=== PATIENT | female | born 1980 | race Caucasian/White ===

== ENCOUNTER 2018-05-23 12:52 | Emergency (ER) | payer OTHER ==
[2018-05-23 12:58] VITALS: BMI 27.6
--- NOTE | 2018-05-23 13:34 | PDOC ---
History of Present Illness - General Chief Complaint: Chest Pain Stated Complaint: CHEST PAIN,LT ARM NUMBNESS Time Seen by Provider: 05/23/18 13:30 History Source: Patient - History of Present Illness Initial Comments: 05/23/18 14:27 37 year old female c/o left sided chest pain radiating to left arm x 1 day. reports slight nausea, headache with chest pressure. as per patient with uri symptoms and cough. denies prolonged sitting, recent travel. No Pmhx Past History - Past Medical History Allergies/Adverse Reactions: Allergies Allergy/AdvReac Type Severity Reaction Status Date / Time No Known Allergies Allergy Verified 05/23/18 12:59 Home Medications: Ambulatory Orders NK [No Known Home Medication] 05/23/18 COPD: No - Family Disease History Family Disease History: Heart Disease: Father ( of [place]), Brother ( hypertension), Sister (hypertension) - Immunization History Immunization Up to Date: Yes - Suicide/Smoking/Psychosocial Hx Smoking History: Never smoked Hx Alcohol Use: No Substance Use Type: None Review of Systems - Review of Systems Able to Perform ROS?: Yes Is the patient limited Mongolian proficient: No *Physical Exam - Vital Signs Last Vital Signs Temp Pulse Resp BP Pulse Ox 97.9 F 78 18 125/81 99 05/23/18 12:56 05/23/18 12:56 05/23/18 12:56 05/23/18 12:56 05/23/18 12:56 - Physical Exam General Appearance: Yes: Appropriately Dressed Respiratory/Chest: positive: Chest Tender (+ left anterior chest pain), Lungs Clear, Normal Breath Sounds Cardiovascular: positive: Regular Rhythm, Regular Rate Musculoskeletal: positive: Normal Inspection Extremity: positive: Normal Capillary Refill, Normal Inspection, Normal Range of Motion Integumentary: positive: Normal Color, Dry, Warm Neurologic: positive: Fully Oriented, Alert, Normal Mood/Affect Moderate Sedation - Procedure Monitoring Vital Signs: Procedure Monitoring Vital Signs Temperature 97.9 F 05/23/18 12:56 Pulse Rate 78 05/23/18 12:56 Respiratory Rate 18 05/23/18 12:56 Blood Pressure 125/81 05/23/18 12:56 O2 Sat by Pulse Oximetry (%) 99 05/23/18 12:56 Medical Decision Making - Medical Decision Making 05/23/18 14:46 A: chest pain P: labs chest xray has family risk factors. r/o ACS.. 05/23/18 15:18 patient signed out to Tiffany PARRA. patient to be transferred for further management. *DC/Admit/Observation/Transfer Diagnosis at time of Disposition: Chest pain Qualifiers: Chest pain type: other chest pain Qualified Code(s): R07.89 - Other chest pain - Referrals Referrals: Collin Aparicio [Primary Care Provider] - - Patient Instructions - Post Discharge Activity
[2018-05-23] MEDS ORDERED: ASPIRIN 81 MG CHEWABLE TABLETS PO ONE (14:21)
[2018-05-23] MEDS ORDERED: ASPIRIN 81 MG CHEWABLE TABLETS ONE (14:40)
[2018-05-23 15:31] LABS: BASO % 0.8 % (0-2.0); EOS % 3.3 % (0-4.5); HEMATOCRIT 37.3 % (32.4-45.2); HEMOGLOBIN 13.4 GM/dL (10.7-15.3); LYMPH % 46.1 % (8-40); MCH 31.8 pg (25.7-33.7); MCHC 35.9 g/dl (32.0-36.0); MEAN CELL VOLUME 88.4 fl (80-96); MEAN PLT VOLUME 9.1 fl (7.5-11.1); MONO % 8.9 % (3.8-10.2); NEUT % 40.9 % (42.8-82.8); PLATELET COUNT 236 K/MM3 (134-434); RBC 4.22 M/mm3 (3.60-5.2); WHITE BLOOD COUNT 4.3 K/mm3 (4.0-10.0)
--- NOTE | 2018-05-23 15:39 | PDOC ---
*Physical Exam - Vital Signs Last Vital Signs Temp Pulse Resp BP Pulse Ox 97.9 F 78 18 125/81 99 05/23/18 12:56 05/23/18 12:56 05/23/18 12:56 05/23/18 12:56 05/23/18 12:56 Heart Score/ECG Review - History History: Slightly suspicious - Electrocardiogram EKG: Normal - Age Age: </= 45 - Risk Factors Based on the list above the patient has:: No risk factors known - Troponin Troponin: </= normal limit - Score Heart Score - Total: 0 ED Treatment Course - LABORATORY CBC & Chemistry Diagram: 05/23/18 15:18 05/23/18 15:18 - ADDITIONAL ORDERS Additional order review: 05/23/18 15:18 RBC 4.22 MCV 88.4 MCHC 35.9 RDW 13.0 MPV 9.1 Neutrophils % 40.9 L D Lymphocytes % 46.1 H D Monocytes % 8.9 Eosinophils % 3.3 D Basophils % 0.8 - Medications Given in the ED: ED Medications Discontinued Medications Generic Name Dose Route Start Last Admin Trade Name Freq PRN Reason Stop Dose Admin Aspirin 162 mg 05/23/18 14:21 05/23/18 14:45 Asa - PO 05/23/18 14:22 162 mg ONCE ONE Administration Medical Decision Making - Medical Decision Making 05/23/18 15:39 37 yo F presenting to the ER with a complaint of chest pain No shortness of breath Initially seen in [facility], sent to the ER for further evaluation Labs sent CXR Consider D dimer Would admit if chest pain persists Would repeat trop if initial trop negative Pt seen by Midlevel Provider under my direct supervision Pt interviewed and examined Ancillary studies reviewed I agree with plan as outlined by Midlevel Provider 05/23/18 15:59 *DC/Admit/Observation/Transfer Diagnosis at time of Disposition: Chest pain Qualifiers: Chest pain type: other chest pain Qualified Code(s): R07.89 - Other chest pain - Referrals Referrals: Collin Aparicio [Primary Care Provider] - - Patient Instructions - Post Discharge Activity
--- NOTE | 2018-05-23 15:39 | PDOC ---
*Physical Exam - Vital Signs Last Vital Signs Temp Pulse Resp BP Pulse Ox 97.9 F 78 18 125/81 99 05/23/18 12:56 05/23/18 12:56 05/23/18 12:56 05/23/18 12:56 05/23/18 12:56 <Tiffany Roldan - Last Filed: 05/23/18 17:39> - Vital Signs Last Vital Signs Temp Pulse Resp BP Pulse Ox 97.9 F 78 18 125/81 99 05/23/18 12:56 05/23/18 12:56 05/23/18 12:56 05/23/18 12:56 05/23/18 12:56 <Chiquis Valentin - Last Filed: 05/23/18 17:47> ED Treatment Course - LABORATORY CBC & Chemistry Diagram: 05/23/18 15:18 05/23/18 15:18 - ADDITIONAL ORDERS Additional order review: 05/23/18 15:18 RBC 4.22 MCV 88.4 MCHC 35.9 RDW 13.0 MPV 9.1 Neutrophils % 40.9 L D Lymphocytes % 46.1 H D Monocytes % 8.9 Eosinophils % 3.3 D Basophils % 0.8 - Medications Given in the ED: ED Medications Discontinued Medications Generic Name Dose Route Start Last Admin Trade Name Mumtaz PRN Reason Stop Dose Admin Aspirin 162 mg 05/23/18 14:21 05/23/18 14:45 Asa - PO 05/23/18 14:22 162 mg ONCE ONE Administration <Tiffany Roldan - Last Filed: 05/23/18 17:39> - LABORATORY CBC & Chemistry Diagram: 05/23/18 15:18 05/23/18 15:18 - ADDITIONAL ORDERS Additional order review: Laboratory Results 05/23/18 05/23/18 05/23/18 17:05 15:18 15:18 PT with INR INR Sodium 135 L Potassium 4.5 Chloride 104 Carbon Dioxide 25 Anion Gap 7 L BUN 10 Creatinine 0.6 Creat Clearance w eGFR > 60 Random Glucose 104 Calcium 8.6 Magnesium 2.0 Total Bilirubin 0.2 AST 16 ALT 22 Alkaline Phosphatase 81 Creatine Kinase 95 Troponin I 0.02 Total Protein 7.4 Albumin 3.8 Serum , Qual Negative Urine Color Ltyellow Urine Appearance Clear Urine pH 6.0 Ur Specific [place] 1.020 Urine Protein Negative Urine Glucose (UA) Negative Urine Ketones Negative Urine Blood Negative Urine Nitrite Negative Urine Bilirubin Negative Urine Urobilinogen Negative Ur Leukocyte Esterase Negative 05/23/18 15:18 PT with INR 12.60 INR 1.07 Sodium Potassium Chloride Carbon Dioxide Anion Gap BUN Creatinine Creat Clearance w eGFR Random Glucose Calcium Magnesium Total Bilirubin AST ALT Alkaline Phosphatase Creatine Kinase Troponin I Total Protein Albumin Serum , Qual Urine Color Urine Appearance Urine pH Ur Specific [place] Urine Protein Urine Glucose (UA) Urine Ketones Urine Blood Urine Nitrite Urine Bilirubin Urine Urobilinogen Ur Leukocyte Esterase 05/23/18 15:18 RBC 4.22 MCV 88.4 MCHC 35.9 RDW 13.0 MPV 9.1 Neutrophils % 40.9 L D Lymphocytes % 46.1 H D Monocytes % 8.9 Eosinophils % 3.3 D Basophils % 0.8 - Medications Given in the ED: ED Medications Discontinued Medications Generic Name Dose Route Start Last Admin Trade Name Freq PRN Reason Stop Dose Admin Aspirin 162 mg 05/23/18 14:21 05/23/18 14:45 Asa - PO 05/23/18 14:22 162 mg ONCE ONE Administration <Chiquis Valentin - Last Filed: 05/23/18 17:47> Medical Decision Making - Medical Decision Making 05/23/18 17:46 The patient was seen and evaluated in conjunction with midlevel provider under my direct supervision, ancillary studies were reviewed. I agree with the plan as outlined by LINDA Roldan. HPI as outlined. discharge, normal labs, NSR EKg, chest pain improved. trop neg, CXR unremarkable PCP followup <Chiquis Valentin - Last Filed: 05/23/18 17:47> *DC/Admit/Observation/Transfer - Discharge Dispostion Decision to Admit order: No <Tiffany Roldan - Last Filed: 05/23/18 17:39> <Chiquis Valentin - Last Filed: 05/23/18 17:47> Diagnosis at time of Disposition: Chest pain Qualifiers: Chest pain type: other chest pain Qualified Code(s): R07.89 - Other chest pain - Discharge Dispostion Disposition: HOME Condition at time of disposition: Stable - Referrals Referrals: Collin Aparicio [Primary Care Provider] - Rock Erazo MD [Staff Physician] - - Patient Instructions Printed Discharge Instructions: DI for Atypical Chest Pain Additional Instructions: Your EKG, lab work and chest x-ray were normal today You are not having a heart attack at this time Please take ibuprofen 800mg every 8 hours as needed for pain Follow up with your hims manager and primary care provider. A referral has been provided for cardiology Return to the ED for shortness of breath, difficulty breathing, increasing chest pain, or if you have any changes in your symptoms - Post Discharge Activity
[2018-05-23 15:49] LABS: INR 1.07 (0.83-1.09); PROTHROMBIN TIME (PATIENT) 12.6 SEC (9.7-13.0)
[2018-05-23 16:07] LABS: ALBUMIN 3.8 g/dl (3.4-5.0); ALK PHOS 81 U/L (45-117); ANION GAP 7 MMOL/L (8-16); BILIRUBIN,TOTAL 0.2 mg/dL (0.2-1); BLOOD UREA NITROGEN 10 mg/dL (7-18); CALCIUM 8.6 mg/dL (8.5-10.1); CHLORIDE 104 mmol/L (98-107); CO2 25 mmol/L (21-32); CREATININE 0.6 mg/dL (0.55-1.3); GLUCOSE,RANDOM 104 mg/dL (74-106); POTASSIUM 4.5 mmol/L (3.5-5.1); SGOT/AST 16 U/L (15-37); SGPT/ALT 22 U/L (13-61); SODIUM 135 mmol/L (136-145); TOT PROT 7.4 g/dl (6.4-8.2)
[2018-05-23 16:30] LABS: URINE APPEARANCE CLEAR; URINE BILIRUBIN NEGATIVE (<2.0 mg/dL); URINE COLOR LTYELLOW; URINE GLUCOSE (UA) NEGATIVE (NEGATIVE); URINE KETONE NEGATIVE (NEGATIVE); URINE LEUK ESTERASE NEGATIVE (NEGATIVE); URINE NITRITE NEGATIVE (NEGATIVE); URINE PROTEIN NEGATIVE (NEGATIVE); URINE UROBILINOGEN NEGATIVE mg/dL (0.2-1.0)
[2018-05-23] MEDS ORDERED: IBUPROFEN 400 MG TABLET (FP) PO ONE ×2 (17:41→17:52)
[2018-05-23 18:16] VITALS: BP 120/78; PULSE 80; TEMP 98.1
--- NOTE | 2018-05-24 11:26 | EKG ---
Test Reason : Blood Pressure : / mmHG Vent. Rate : 062 BPM Atrial Rate : 062 BPM P-R Int : 140 ms QRS Dur : 076 ms QT Int : 440 ms P-R-T Axes : 033 004 013 degrees QTc Int : 446 ms NORMAL SINUS RHYTHM NORMAL ECG WHEN COMPARED WITH ECG OF 23-MAY-2018 13:01, NO SIGNIFICANT CHANGE WAS FOUND Confirmed by DANII EAGLE MD ([id number]) on 05/24/2018 11:26:07 AM Referred By: Confirmed By:DANII EAGLE MD
--- NOTE | 2018-05-25 16:28 | EKG ---
Test Reason : Blood Pressure : / mmHG Vent. Rate : 072 BPM Atrial Rate : 072 BPM P-R Int : 132 ms QRS Dur : 080 ms QT Int : 404 ms P-R-T Axes : 041 006 022 degrees QTc Int : 442 ms NORMAL SINUS RHYTHM NORMAL ECG NO PREVIOUS ECGS AVAILABLE Confirmed by ANNE MARIE CRANDALL MD ([id number]) on 05/25/2018 4:28:40 PM Referred By: Confirmed By:ANNE MARIE CRANDALL MD
== END 2018-05-23 17:55 | disposition home or self-care (01) ==
LOC: JER 12:52
DX: R07.9 Chest pain, unspecified (principal)
CPT/HCPCS: 36415; 71046-TC-FY; 80053; 81003; 82550; 83735; 84484; 84703; 85025; 85610; 93005; 93010; 99283-25